=== PATIENT | female | born 1960 | race Caucasian/White ===

== ENCOUNTER 2024-03-19 10:33 | Inpatient (IN) ==
[2024-03-12 11:27] LABS: Basophils # (Auto) 0.06 K/mcL (0.00-0.30); Basophils % (Auto) 0.8 % (0.0-2.0); Eosinophils # (Auto) 0.39 K/mcL (0.00-0.70); Eosinophils % (Auto) 4.9 % (0.0-7.0); Hematocrit 47.3 % (34.1-44.9); Hemoglobin 15.5 g/dL (11.2-15.7); Lymphocytes % (Auto) 37.8 % (15.5-49.0); Mean Cell Volume 95.7 fL (80.0-100.0); Mean Corpuscular HGB Conc 32.8 g/dL (31.0-36.0); Mean Platelet Volume 9.5 fL (8.8-12.5); Monocytes # (Auto) 0.62 K/mcL (0.10-0.90); Monocytes % (Auto) 7.8 % (1.0-12.0); Neutrophils % (Auto) 48.4 % (38.0-78.0); Platelet Count 257 K/mcL (140-440); RBC 4.94 M/mcL (3.59-5.38); Red Cell Distribution Width 12.3 % (11.5-14.5); WBC 7.9 K/mcL (4.5-11.0)
[2024-03-12 12:15] LABS: Blood Urea Nitrogen 11 mg/dL (8-23); Calcium 9.9 mg/dL (8.6-10.4); Carbon Dioxide 20 mmol/L (22-30); Chloride 104 mmol/L (96-108); Glomerular Filtration Rate 92; Glucose 91 mg/dL (70-105); Sodium 138 mmol/L (133-145)
[2024-03-12 14:41] LABS: Appearance,Urine CLEAR (Clear); Bilirubin,Urine Negative (Negative); Color,Urine YELLOW; Glucose,Urine (UA) Negative (Negative); Ketones,Urine Negative (Negative); Leukocyte Esterase,Urine Negative /uL (Negative); Nitrate,Urine Negative (Negative); Protein,Urine Negative (Negative); Specific Gravity,Urine 1.008 (1.000-1.035); Urine Blood Negative (Negative); Urobilinogen,Urine Negative
[2024-03-12 15:24] LABS: Estimated Average Glucose(eAG) 117 mg/dL; Hemoglobin A1C 5.7 % Hgb (4.0-6.0)
[2024-03-19] MEDS ORDERED: fentaNYL 100 MCG/2 ML VIAL ONE ×2 (12:32→14:02)
[2024-03-19] MEDS ORDERED: PROPOFOL 200 MG/20 ML VIAL IV ONE (12:32)
[2024-03-19] MEDS ORDERED: LIDOCAINE 2% PF 5 ML VIAL ONE (12:33)
[2024-03-19] MEDS ORDERED: TRANEXAMIC ACID 1,000 MG/10 ML VIAL ONE (12:33)
[2024-03-19] MEDS ORDERED: KETAMINE 50 MG/ML ML ONE (12:33)
[2024-03-19] MEDS ORDERED: ONDANSETRON 4 MG/2 ML VIAL ONE (12:33)
[2024-03-19] MEDS ORDERED: DEXAMETHASONE 10 MG/ML VIAL ONE (12:33)
[2024-03-19] MEDS ORDERED: MAGNESIUM SULFATE 2 GM/50 ML BAG IV ONE (12:34)
[2024-03-19] MEDS: ceFAZolin 2 GM in DEXTROSE 5% IN WATER 50 ML IV SCH (13:11)
[2024-03-19] MEDS: VANCOMYCIN 1 GM VIAL TOPICAL SCH (14:11)
[2024-03-19] MEDS: 0.9 % SODIUM CHLORIDE 9 ML, KETOROLAC 30 MG, ROPIVACAINE HCL/PF 49.5 ML, EPINEPHrine 0.... IJ SCH (14:12)
[2024-03-19] MEDS ORDERED: ROPIVACAINE HCL/PF 30 ML VIAL IJ ONE (14:16)
[2024-03-19] MEDS ORDERED: KETOROLAC 30 MG/ML VIAL IV PRN (14:19)
[2024-03-19] MEDS ORDERED: diphenhydrAMINE 50 MG/ML VIAL IV PRN (14:19)
[2024-03-19] MEDS ORDERED: NALOXONE HCL 0.4 MG/ML VIAL IV PRN (14:19)
[2024-03-19] MEDS ORDERED: ONDANSETRON 4 MG/2 ML VIAL IV PRN ×2 (14:19→14:35)
[2024-03-19] MEDS ORDERED: MEPERIDINE 25 MG/ML VIAL IV PRN (14:19)
[2024-03-19] MEDS ORDERED: HYDROmorphone 0.5 MG/0.5 ML SYRINGE IV PRN (14:19)
[2024-03-19] MEDS ORDERED: LACTATED RINGERS 250 ML IV PRN (14:19)
[2024-03-19] MEDS ORDERED: IPRATROPIUM/ALBUTEROL 3 ML AMPUL.NEB NEB PRN (14:19)
[2024-03-19] MEDS ORDERED: CETIRIZINE 10 MG TABLET PO PRN (14:31)
[2024-03-19] MEDS ORDERED: MAGNESIUM HYDROXIDE 30 ML ORAL.SUSP PO PRN (14:35)
[2024-03-19] MEDS ORDERED: POLYETHYLENE GLYCOL 3350 17 GM PACKET PO PRN (14:35)
[2024-03-19] MEDS ORDERED: BENZOCAINE/MENTHOL 1 LOZENGE PO PRN (14:35)
[2024-03-19] MEDS ORDERED: FLEETS ADULT 1 DOSE ENEMA PR PRN (14:35)
[2024-03-19] MEDS ORDERED: BISACODYL 10 MG SUPP.RECT PR PRN (14:35)
[2024-03-19] MEDS: ACETAMINOPHEN 1,000 MG/100 ML BAG IV ONE (15:06)
[2024-03-19] MEDS: TRANEXAMIC ACID 1,000 MG/10 ML VIAL IV SCH (15:10)
[2024-03-19] MEDS: fentaNYL 100 MCG/2 ML VIAL IV PRN (15:19)
[2024-03-19] MEDS: PREGABALIN 75 MG CAPSULE PO SCH (15:34)
[2024-03-19] MEDS: CELECOXIB 200 MG CAPSULE PO SCH (15:34)
[2024-03-19] MEDS: oxyCODONE 10 MG TAB.ER.12H PO SCH (15:35)
[2024-03-19] MEDS: LACTATED RINGERS 1,000 ML IV SCH ×2 (15:35→16:52)
[2024-03-19] MEDS: KETOROLAC 15 MG/ML VIAL IV SCH (17:06)
[2024-03-19] MEDS: METHOCARBAMOL 500 MG TABLET PO PRN (19:21)
[2024-03-19] MEDS: SENNOSIDES 1 TABLET PO SCH (20:33)
[2024-03-19] MEDS: ATORVASTATIN 10 MG TABLET PO SCH (20:33)
[2024-03-19] MEDS: ceFAZolin 1 GM VIAL IV SCH (20:33)
[2024-03-19] MEDS: ASPIRIN 81 MG TAB.CHEW CHEWED SCH (20:33)
[2024-03-19] MEDS: 0.9 % SODIUM CHLORIDE 10 ML SYRINGE IV SCH (20:33)
[2024-03-19] MEDS: DOCUSATE SODIUM 100 MG CAPSULE PO SCH (20:33)
[2024-03-19] MEDS: SOLIFENACIN 5 MG PO ONE (20:37)
[2024-03-19] MEDS ORDERED: MELATONIN 3 MG TABLET PO PRN (21:00)
[2024-03-19] MEDS: ACETAMINOPHEN 500 MG TABLET PO SCH (23:15)
[2024-03-20] MEDS: OMEPRAZOLE 20 MG CAPSULE PO SCH (06:52)
[2024-03-20] MEDS: LEVOTHYROXINE 50 MCG TABLET PO SCH (06:52)
[2024-03-20] MEDS: oxyCODONE IR 5 MG TABLET PO PRN (08:11)
[2024-03-20] MEDS: MAGNESIUM OXIDE 400 MG TABLET PO SCH (08:11)
[2024-03-20] MEDS: amLODIPine 5 MG TABLET PO SCH (08:11)
[2024-03-20] MEDS: LISINOPRIL 10 MG TABLET PO SCH (08:11)
[2024-03-20] MEDS ORDERED: POTASSIUM CITRATE PO SCH (09:00)
== END 2024-03-20 10:25 | disposition home or self-care (01) | DRG 489 ==
LOC: EDACCT# → MEDSUR 10:33 → EDSTATUS 13:30
PROVIDERS: ADMIT Orthopaedic Surgery; ATTEND Orthopaedic Surgery